=== PATIENT | male | born 1955 | race Caucasian/White ===

== ENCOUNTER 2018-11-28 13:27 | Emergency (ER) | payer OTHER ==
[~2018-11-28] VITALS: Ht 182.9 cm; Wt 97.5 kg
[~2018-11-28 13:27] MED LIST: BACTRIM DS TAB1 EACH PO; KEFLEX500 MG PO
[2018-11-28 13:48] LABS: ABSOLUTE NEUTROPHILS 3.7 thou/uL (1.4-8.2); BASOPHILS 0.8 % (0.0-2.0); EOSINOPHILS 1.7 % (0.0-3.0); HEMATOCRIT 48.8 % (42.0-52.0); HEMOGLOBIN 16.5 gm/dL (14.0-18.0); MCH 32.3 pg (26.0-34.0); MCHC 33.8 g/dL (28.0-37.0); MCV 95.6 fL (80.0-100.0); MONOCYTES 5.5 % (1.0-8.0); PLATELET COUNT 175 thou/uL (150-400); RDW 13.7 % (10.5-14.5); WBC 6.3 thou/uL (4.0-11.0)
[2018-11-28 14:00] LABS: CALCIUM 8.9 mg/dL (8.5-10.1); POTASSIUM 4.1 mmol/L (3.5-5.1)
[2018-11-28 14:06] LABS: ALBUMIN 3.8 g/dL (3.4-5.0); TOTAL BILIRUBIN 0.3 mg/dL (<0.1-1.0); TOTAL PROTEIN 7.4 g/dL (6.4-8.2)
[2018-11-28 14:28] LABS: URINE BILIRUBIN NEGATIVE (Negative); URINE BLOOD NEGATIVE (Negative); URINE CLARITY CLEAR; URINE COLOR YELLOW; URINE GLUCOSE-RANDOM* NEGATIVE (Negative); URINE KETONES NEGATIVE (Negative); URINE LEUKOCYTES NEGATIVE (Negative); URINE NITRITE NEGATIVE (Negative); URINE PROTEIN (DIPSTICK) NEGATIVE (Negative); URINE UROBILINOGEN 0.2 E.U./dl (0.2-1.0)
[2018-11-28] MEDS ORDERED: ATIVAN1 M1 PO (16:48)
[2018-11-28] MEDS ORDERED: DOXYCYCLINE 10100 MG PO (16:48)
[2018-11-28] MEDS ORDERED: AMOXICILLIN 50500 MG PO (17:00)
[2018-11-28 17:19] VITALS: BP 133/80
== END 2018-11-28 17:15 | disposition home or self-care (01) ==
LOC: ER 13:27
PROVIDERS: Emergency Medicine
DX: G47.50 Parasomnia, unspecified (principal); F17.210 Nicotine dependence, cigarettes, uncomplicated

== ENCOUNTER 2018-12-20 14:16 | Emergency (ER) | payer OTHER ==
[~2018-12-20] VITALS: Ht 182.9 cm; Wt 102.1 kg
[~2018-12-20 14:16] MED LIST changes: +AMOXICILLIN 50500 MG PO; +ATIVAN1 M1 PO; +DOXYCYCLINE 10100 MG PO
[2018-12-20 14:34] VITALS: BP 141/53
[2018-12-20] MEDS ORDERED: TESSALON PERLE100 MG PO (15:22)
== END 2018-12-20 15:46 | disposition home or self-care (01) ==
LOC: ER 14:16
DX: R05 Cough (principal); F17.210 Nicotine dependence, cigarettes, uncomplicated; Z76.0 Encounter for issue of repeat prescription